=== PATIENT | male | born 1955 | race Caucasian/White ===

== ENCOUNTER 2018-09-25 08:00 | Emergency (ER) | payer MEDICAID ==
--- NOTE | 2018-09-25 09:12 | ER Document Report ---
ED General - General Chief Complaint: Low Back Pain Stated Complaint: LOWER BACK PAIN Time Seen by Provider: 09/25/18 09:05 Primary Care Provider: KIMO MENDEZ MD [Primary Care Provider] - Follow up in 3-5 days Notes: Patient is a 63-year-old male that presents to the emergency department for chief complaint of back pain. Patient reports his been having pain in his lower back for approximately 2 months, but it seemed to be much worse over the last 3 days, he has been doing strenuous activities, lifting and twisting, and just recently moved home, he states he has some pain in his right back that radiates into the right upper leg, towards the back, but nothing past the knee, denies any numbness, tingling or weakness. Denies saddle anesthesia or paresthesias. Denies having any urinary incontinence, urinary retention, or bowel incontinence. He denies having any foot drop, or difficulty walking with the exception of the pain which makes it more painful to walk. He currently rates his pain as a 7 out of 10, constant, aching, describes it as worse with movements. Past Medical History: Denies chronic medical conditions Past Surgical History: Hernia repair Social History: Admits to smoking cigarettes daily, denies alcohol or drug use. Family History: Reviewed and noncontributory for presenting illness Allergies: Reviewed, see documented allergy list. REVIEW OF SYSTEMS: Other than noted above, the 12 point review of systems was reviewed with the patient and were negative, all pertinent findings are included in the HPI. PHYSICAL EXAMINATION: Vital signs reviewed, nursing noted reviewed. GENERAL: Patient appears uncomfortable, but in no immediate distress HEAD: Atraumatic, normocephalic. EYES: Eyes appear normal, sclera anicteric, conjunctiva are normal. ENT: Moist mucous membranes. NECK: Normal range of motion, supple without lymphadenopathy LUNGS: Breath sounds clear to auscultation bilaterally and equal. No wheezes rales or rhonchi. HEART: Regular rate and rhythm without murmurs EXTREMITIES: Nontender, good range of motion, no pitting or edema. Muscular motor strength is +5/5 distally in all extremities, more specifically, he has +5/5 strength in extension of the hallucis longus tendon, dorsiflexion and plantarflexion of the feet. Back: The paraspinal muscles of the lumbar spine appear to be in spasm, there is tenderness bilaterally in the paraspinal muscles, there is no midline tenderness to palpation to the thoracic or lumbar spine, no step-off or deformity. Negative straight leg raising bilaterally. NEUROLOGICAL: No focal neurological deficits. Moves all extremities spontaneously Motor and sensory grossly intact on exam. PSYCH: Normal mood, normal affect. SKIN: Warm, Dry, normal turgor, no rashes or lesions noted on exposed skin TRAVEL OUTSIDE OF THE [place] IN LAST 30 DAYS: No - Related Data Allergies/Adverse Reactions: No Known Allergies Allergy (Verified 09/25/18 08:04) Past Medical History - Social History Smoking Status: Current Every Day Smoker Family History: Reviewed & Not Pertinent Patient has suicidal ideation: No Patient has homicidal ideation: No - Past Medical History Cardiac Medical History: Denies: Hx Heart Attack, Hx Hypertension Pulmonary Medical History: Denies: Hx Asthma, Hx Tuberculosis Neurological Medical History: Denies: Hx Cerebrovascular Accident, Hx Seizures Renal/ Medical History: Denies: Hx Peritoneal Dialysis GI Medical History: Reports: Hx Ulcer - resolved approx 6 yrs ago. Denies: Hx Hepatitis, Hx Hiatal Hernia Infectious Medical History: Denies: Hx Hepatitis Past Surgical History: Reports: Hx Abdominal Surgery. Denies: Hx Open Heart Surgery, Hx Pacemaker - Immunizations Hx Diphtheria, Pertussis, Tetanus Vaccination: No Physical Exam - Vital signs Vitals: Temp Pulse Resp BP Pulse Ox 97.5 F 69 16 120/85 100 09/25/18 08:06 09/25/18 08:06 09/25/18 08:06 09/25/18 08:06 09/25/18 08:06 Course - Re-evaluation Re-evalutation: Patient seen and examined vital signs reviewed. Patient was evaluated and treated as appropriate for the patient's presenting symptoms and complaint, with consideration of any critical or life threatening conditions that may be associated with their obtained history and exam as noted above. Patient was treated with IM Toradol 60 mg The patient was re-evaluated and was stable Evaluation was most consistent with low back pain, with sciatica to the right leg, will treat with oral prednisone for 5 days, muscle relaxers, and advised heating pad, and [id number] NSAIDs as needed for pain. Plan of care was discussed with the patient at this point, after careful consideration I feel that that patient can be discharged from the emergency department, the patient was educated treatments and reasons to return to the emergency department based on their presumed diagnosis as noted above, they were advised to followup with a primary care physician in 2-3 days. Patient was agreeable to plan of care. *Note is created using voice recognition software and may contain spelling, syntax or grammatical errors. - Vital Signs Vital signs: Temp Pulse Resp BP Pulse Ox 97.5 F 69 16 120/85 100 09/25/18 08:06 09/25/18 08:06 09/25/18 08:06 09/25/18 08:06 09/25/18 08:06 Discharge - Discharge Clinical Impression: Low back pain Qualifiers: Chronicity: chronic Back pain laterality: bilateral Sciatica presence: with sciatica Sciatica laterality: sciatica of right side Qualified Code(s): M54.41 - Lumbago with sciatica, right side Condition: Stable Disposition: HOME, SELF-CARE Instructions: Low Back Pain ([facility]) Additional Instructions: Please take all medications as prescribed, including the muscle relaxer and steroid, and continue using Lidoderm patch, that this may help with some of your pain, as well as using a warm compress/heating pad for 20 minutes on and 20 minutes off to help relieve the spasm of the muscles in your back. Prescriptions: Methocarbamol [Robaxin 750 mg Tablet] 750 mg PO Q8H PRN #20 tablet PRN Reason: back spasm Prednisone [Deltasone 20 mg Tablet] 2 tab PO DAILY 5 Days #10 tablet Referrals: KIMO MENDEZ MD [Primary Care Provider] - Follow up in 3-5 days
[2018-09-25] MEDS ORDERED: KETOROLAC TROMETHAMINE 60 MG/2 ML SDV IM ONE (09:36)
[2018-09-25 10:51] VITALS: BP 126/81
== END 2018-09-25 09:55 | disposition home or self-care (01) ==
LOC: ER 08:00
DX: M54.41 Lumbago with sciatica, right side (principal); G89.29 Other chronic pain; F17.210 Nicotine dependence, cigarettes, uncomplicated
CPT/HCPCS: 99283; 96372; J1885

== ENCOUNTER → 2019-01-03 | Outpatient (CLI) | payer MEDICAID ==
--- NOTE | 2019-01-03 09:11 | RADIOLOGY REPORT (SQ) ---
EXAM DESCRIPTION: L SPINE WHOLE COMPLETED DATE/TIME: 01/03/2019 9:02 am REASON FOR STUDY: LUMBAR PAIN (M54.5) M54.5 LOW BACK PAIN COMPARISON: None. NUMBER OF VIEWS: Five views including obliques. TECHNIQUE: AP, lateral, oblique, and sacral radiographic images acquired of the lumbar spine. LIMITATIONS: None. FINDINGS: MINERALIZATION: Normal. SEGMENTATION: Normal. No transitional anatomy. ALIGNMENT: Normal. VERTEBRAE: Maintained height. No fracture or worrisome bone lesion. DISCS: Disc heights are fairly well-maintained. There prominent anterior osteophytes at multiple lev els. There are prominent lateral osteophytes. POSTERIOR ELEMENTS: Pedicles and facets are intact. No pars defect or posterior arch defects. Facet arthropathy is present. HARDWARE: None in the spine. PARASPINAL SOFT TISSUES: Normal. PELVIS: Intact as visualized. No fractures or worrisome bone lesions. SI joints intact. OTHER: No other significant finding. IMPRESSION: Multilevel facet arthropathy. Prominent anterior and lateral osteophytes. Disc heights are well preserved. TECHNICAL DOCUMENTATION: JOB ID: [id number] [employer] All Rights Reserved Reading location - IP/workstation name: [email or web address]
== END ==
LOC: RAD 08:26
PROVIDERS: ATTEND Nurse Practitioner Primary Care
DX: M54.5 Low back pain (principal)
CPT/HCPCS: 72110

== ENCOUNTER 2020-04-19 07:42 | Emergency (ER) | payer SELFPAY ==
[2020-04-19] MEDS ORDERED: ONDANSETRON HCL INJ/PF 4 MG/2 ML SDV IV ONE (09:31)
[2020-04-19] MEDS ORDERED: MORPHINE SULFATE 10 MG/ML INJ IV ONE (09:31)
--- NOTE | 2020-04-19 09:39 | ER Document Report ---
ED General - General Chief Complaint: Rib Pain Stated Complaint: FALL/LEFT RIB PAIN Time Seen by Provider: 04/19/20 08:07 Primary Care Provider: SANAZ PEDROZA FNP-C [Primary Care Provider] - Follow up as needed TRAVEL OUTSIDE OF THE [place] IN LAST 30 DAYS: No - HPI Notes: Chief complaint: Fall with injury to left ribs, lower back and left hip History of present illness: 65-year-old male 3 days status post fall presents complaining of increased pain to left ribs, lower back and left hip. Patient takes no regular medications and has no known allergies. He states he was walking down the street and accidentally tripped over a curb and fell to the pavement. He denies striking his head or injuring his neck. He was initially somewhat sore but able to control his pain with [id number] analgesics. He says his pain and stiffness are much worse now that he cannot move without significant pain. He denies fever, chills, shortness of breath, abdominal pain or hematuria. - Related Data Allergies/Adverse Reactions: No Known Allergies Allergy (Verified 09/25/18 08:04) Past Medical History - General Information source: Patient - Social History Smoking Status: Never Smoker Chew tobacco use (# tins/day): No Frequency of alcohol use: None Drug Abuse: None Family History: Reviewed & Not Pertinent Patient has homicidal ideation: No - Past Medical History Cardiac Medical History: Denies: Hx Heart Attack, Hx Hypertension Pulmonary Medical History: Denies: Hx Asthma, Hx Tuberculosis Neurological Medical History: Denies: Hx Cerebrovascular Accident, Hx Seizures Renal/ Medical History: Denies: Hx Peritoneal Dialysis GI Medical History: Reports: Hx Ulcer - resolved approx 10 yrs ago. Denies: Hx Hepatitis, Hx Hiatal Hernia Infectious Medical History: Denies: Hx Hepatitis Past Surgical History: Reports: Hx Abdominal Surgery. Denies: Hx Open Heart Surgery, Hx Pacemaker - Immunizations Hx Diphtheria, Pertussis, Tetanus Vaccination: No Review of Systems - Review of Systems Notes: Constitutional: Negative for fever. HENT: Negative for sore throat. Eyes: Negative for visual changes. Cardiovascular: Negative for chest pain. Respiratory: Negative for shortness of breath. Gastrointestinal: Negative for abdominal pain, vomiting or diarrhea. Genitourinary: Negative for dysuria. Musculoskeletal: As per HPI. Skin: Negative for rash. Neurological: Negative for headaches, weakness or numbness. 10 point ROS negative except as marked above and in HPI. Physical Exam - Vital signs Vitals: Temp Pulse Resp BP Pulse Ox 97.4 F 81 18 147/91 H 100 04/19/20 07:45 04/19/20 07:45 04/19/20 07:45 04/19/20 07:45 04/19/20 07:45 - Notes Notes: GENERAL: Slender male approximately stated age who appears very uncomfortable. SKIN: Good turgor no rashes. HEAD: Normocephalic atraumatic. EYES: PERRLA. EOMI. Conjunctivae and sclerae clear. EARS: CANALS AND TMS CLEAR. NOSE: CLEAR. MOUTH: Moist mucosa. Good dentition. No stridor or edema. No drooling. NECK: Supple. No masses or thyromegaly. No adenopathy. Carotids 2+ without bruits. No JVD. BACK: Symmetrical with moderate tenderness of the lumbar area midline without step-off or crepitus appreciated. CHEST: Exquisitely tender over left posterior lateral rib area. No palpable crepitus or step-off. No visible ecchymoses. Respirations unlabored. Breath sounds clear and symmetrical. HEART: Regular rhythm. No murmur gallop or rub. ABDOMEN: Soft nontender without masses, organomegaly or rebound. Bowel sounds normally active. No bruits. GENITALIA: Deferred. EXTREMITIES: Patient is tender over left posterior pelvis without step-off or crepitus. There is no shortening or abnormal rotation of lower extremity. He is exquisitely tender with movement of his hip joint on the left. No edema. No calf tenderness. Cap refill less than 1.5 seconds. Dorsalis pedis and posterior tibial pulses 3+ and symmetrical. NEUROLOGICAL: GCS 15. Alert and oriented x3. Normal gait. Fluent speech. Cranial nerves II through XII intact. Sensorimotor and cerebellar normal. Normal tone. PSYCHIATRIC: Appropriate affect. Course - Re-evaluation Re-evalutation: 04/19/20 11:39 Clinically the patient has a fracture of the left 10th rib and this correlates with findings on the chest x-ray which is otherwise unremarkable. He has a lot of degenerative changes of his lumbar spine without fracture per radiologist. He is plain films of the pelvis were also unremarkable. CBC and chemistry profile are normal. Blood alcohol is less than 10. Patient was given some IV morphine and Toradol and subsequently some more Percocet with good control of his pain. We talked about management of rib fracture conservatively as an outpatient. Findings, clinical impression and plan of treatment have been discussed with patient/family. Understanding of current findings and recommendations has been acknowledged by them and there is agreement regarding disposition and follow-up. - Vital Signs Vital signs: Temp Pulse Resp BP Pulse Ox 97.4 F 81 18 147/91 H 100 04/19/20 07:45 04/19/20 07:45 04/19/20 07:45 04/19/20 07:45 04/19/20 07:45 - Laboratory Result Diagrams: 04/19/20 09:50 04/19/20 09:50 Laboratory results interpreted by me: 04/19/20 04/19/20 09:50 09:50 MCV 98 H MCH 33.6 H Sodium 134.7 L - Diagnostic Test Radiology reviewed: Reports reviewed - Lower left rib fracture Discharge - Discharge Clinical Impression: Rib fracture Qualifiers: Encounter type: initial encounter Rib fracture type: single rib Fracture type: closed Laterality: left Qualified Code(s): S22.32XA - Fracture of one rib, left side, initial encounter for closed fracture Condition: Stable Disposition: HOME, SELF-CARE Additional Instructions: Rib Injuries and Fractures You have been diagnosed as having either bruised or broken ribs. These two injuries are treated in the same way. It will usually take four to six weeks for these injured ribs to heal. Sometimes, rib belts or anesthetic injections of the chest wall help reduce the pain. If you are using a rib belt, you should cough or take a deep breath at least every hour or two to prevent lung complications. You should not engage in any strenuous physical activity until released by your physician. The usual rule is "if it hurts, don't do it." Rib fractures can lead to serious lung complications including lung collapse, hemorrhage, and pneumonia. You should call the physician or return at once if any of the following occur: (1) Fever or chills. (2) Persistent cough, coughing up blood, or shortness of breath. (3) Increasing pain. (4) Weakness, lightheadedness, or fainting. Return here as needed for new or worsening symptoms: Pain that is worsening or unimproved Uncontrolled vomiting High fever or shaking chills Overall worsening Your primary care provider within the next 1 week. Prescriptions: Oxycodone HCl/Acetaminophen [Percocet 5-325 mg Tablet] 1 - 2 tab PO Q4H PRN #15 tablet PRN Reason: Referrals: SANAZ PEDROZA FNP-C [Primary Care Provider] - Follow up as needed
[2020-04-19 10:13] LABS: ABSOLUTE BASOPHILS # (AUTO) 0.1 10^3/uL (0.0-0.2); ABSOLUTE EOSINOPHILS # (AUTO) 0.1 10^3/uL (0.0-0.6); ABSOLUTE MONOCYTES (AUTO) 0.7 10^3/uL (0.1-1.4); BASOPHILS % (AUTO) 1.2 % (0-2); EOSINOPHILS % (AUTO) 1.5 % (0-6); HEMATOCRIT 43.8 % (37.9-51.0); LYMPHOCYTES % (AUTO) 14.7 % (13-45); MEAN CORPUSCULAR HEMOGLOBIN 33.6 pg (27.0-33.4); MEAN CORPUSCULAR HGB CONC 34.3 g/dL (32.0-36.0); MEAN CORPUSCULAR VOLUME 98 fl (80-97); MONOCYTES % (AUTO) 10.8 % (3-13); PLATELET COUNT 177 10^3/uL (150-450); RED BLOOD COUNT 4.47 10^6/uL (4.35-5.55); RED CELL DISTRIBUTION WIDTH 13.1 % (11.5-14.0); SEGMENTED NEUTROPHILS % (AUTO) 71.8 % (42-78); TOTAL CELLS COUNTED % (AUTO) 100 %; WHITE BLOOD COUNT 6.9 10^3/uL (4.0-10.5)
--- NOTE | 2020-04-19 10:34 | RADIOLOGY REPORT (SQ) ---
EXAM DESCRIPTION: CHEST 2 VIEWS IMAGES COMPLETED DATE/TIME: 04/19/2020 10:23 am REASON FOR STUDY: rib trauma left COMPARISON: None. EXAM PARAMETERS: NUMBER OF VIEWS: two views TECHNIQUE: Digital Frontal and Lateral radiographic views of the chest acquired. RADIATION DOSE: NA LIMITATIONS: none FINDINGS: LUNGS AND PLEURA: No opacities, masses or pneumothorax. No pleural effusion. MEDIASTINUM AND HILAR STRUCTURES: No masses or contour abnormalities. HEART AND VASCULAR STRUCTURES: Heart normal size. No evidence for failure. BONES: Question of left lower rib fracture. HARDWARE: None in the chest. OTHER: No other significant finding. IMPRESSION: 1. NO ACUTE RADIOGRAPHIC FINDING IN THE CHEST. 2. Further evaluation with left rib detail series may be helpful in view of the patient's given hist ory. Question of left lower rib fracture. TECHNICAL DOCUMENTATION: JOB ID: [id number] 2010 [employer]- All Rights Reserved Reading location - IP/workstation name: [email or web address]
--- NOTE | 2020-04-19 10:35 | RADIOLOGY REPORT (SQ) ---
EXAM DESCRIPTION: PELVIS AP IMAGES COMPLETED DATE/TIME: 04/19/2020 10:23 am REASON FOR STUDY: trauma COMPARISON: None. NUMBER OF VIEWS: One view TECHNIQUE: AP Pelvis LIMITATIONS: None. FINDINGS: MINERALIZATION: Normal. HIPS: No acute fracture or dislocation. No worrisome bone lesions. PELVIS AND SACRUM: No acute fracture or dislocation. No worrisome bone lesions. PUBIS AND ISCHIUM: No acute fracture. LOWER LUMBAR SPINE: No significant findings as visualized. SOFT TISSUES: No findings. OTHER: No other significant finding. IMPRESSION: 1. NEGATIVE STUDY OF THE PELVIS. COMMENT: Pelvic fractures are often occult on plain radiographs. If strong clinical suspicion for f racture, recommend CT or MR. TECHNICAL DOCUMENTATION: JOB ID: [id number] 2010 [employer]- All Rights Reserved Reading location - IP/workstation name: [email or web address]
--- NOTE | 2020-04-19 10:39 | RADIOLOGY REPORT (SQ) ---
EXAM DESCRIPTION: L SPINE WHOLE IMAGES COMPLETED DATE/TIME: 04/19/2020 10:23 am REASON FOR STUDY: trauma COMPARISON: 01/03/2019 NUMBER OF VIEWS: Five views including obliques. TECHNIQUE: AP, lateral, oblique, and sacral radiographic images acquired of the lumbar spine. LIMITATIONS: None. FINDINGS: MINERALIZATION: Normal. SEGMENTATION: Normal. No transitional anatomy. ALIGNMENT: Normal. VERTEBRAE: Maintained height. No fracture or worrisome bone lesion. DISCS: Preserved height. Mildly prominent anterior osteophytes. Degenerative changes involve visual ized lower thoracic spine. POSTERIOR ELEMENTS: Facet arthrosis. Pedicles are intact. No pars defect or posterior arch defects . HARDWARE: None in the spine. PARASPINAL SOFT TISSUES: Normal. PELVIS: Intact as visualized. No fractures or worrisome bone lesions. SI joints intact. OTHER: Mild atherosclerotic changes involving the abdominal aorta. IMPRESSION: 1. No significant interval changes since the prior examination dated 01/03/2019. Stable degenerative changes as above. 2. No acute osseous findings. TECHNICAL DOCUMENTATION: JOB ID: [id number] 2010 [facility]- All Rights Reserved Reading location - IP/workstation name: [email or web address]
[2020-04-19 10:41] LABS: ALKALINE PHOSPHATASE 67 U/L (38-126); ASPARTATE AMINO TRANSFERASE 27 U/L (17-59); BILIRUBIN,TOTAL 0.5 mg/dL (0.2-1.3); BLOOD UREA NITROGEN 9 mg/dL (7-20); CALCIUM 9.1 mg/dL (8.4-10.2); CHLORIDE 105 mmol/L (98-107); GLUCOSE 98 mg/dL (75-110); POTASSIUM 4.4 mmol/L (3.6-5.0); TOTAL PROTEIN 6.8 g/dL (6.3-8.2)
[2020-04-19 10:43] LABS: ALCOHOL < 10 mg/dL (NONE DETECTED)
[2020-04-19 10:48] LABS: ANION GAP 5 (5-19); CARBON DIOXIDE 25 mmol/L (22-30)
[2020-04-19] MEDS ORDERED: OXYCODONE-ACETAMINOPHEN 5-325 MG TABLET PO ONE (11:37)
[2020-04-19] MEDS ORDERED: KETOROLAC TROMETHAMINE INJ/PF 30 MG/1 ML SDV IV ONE (11:37)
[2020-04-19 12:14] VITALS: BP 134/89
== END 2020-04-19 12:10 | disposition home or self-care (01) ==
LOC: ER 07:42
DX: S22.32XA Fracture of one rib, left side, initial encounter for closed fracture (principal); R07.81 Pleurodynia; M54.5 Low back pain; M25.552 Pain in left hip; W10.1XXA Fall (on)(from) sidewalk curb, initial encounter; Y93.01 Activity, walking, marching and hiking; Y92.410 Unspecified street and highway as the place of occurrence of the external cause; M47.816 Spondylosis without myelopathy or radiculopathy, lumbar region
CPT/HCPCS: 99284; 96374; 96375; 36415; 80307; 85025; 80053; 71046; 72110; 72170; J1885; J2270; J2405